=== PATIENT | male | born 1970 | race Two or more races ===

== ENCOUNTER 2024-05-19 07:13 | Day surgery (SDC) | payer OTHER ==
[2024-05-15 14:02] VITALS: BP 11/72
[~2024-05-19] VITALS: Ht 172.7 cm; Wt 106.1 kg
[2024-05-19] MEDS ORDERED: CEFAZOLIN SODIUM 1,000 MG VIAL IV ONE (21:15)
[2024-05-19] MEDS ORDERED: MORPHINE SULFATE 4 MG/ML VIAL IV ONE ×2 (23:10→23:40)
== END 2024-05-20 01:50 | disposition home or self-care (01) ==
LOC: CIR.AMB 07:13
PROVIDERS: ATTEND Orthopaedic Surgery Hand Surgery
DX: D21.11 Benign neoplasm of connective and other soft tissue of right upper limb, including shoulder (principal); M70.21 Olecranon bursitis, right elbow